=== PATIENT | male | born 1960 | race Caucasian/White ===

== ENCOUNTER 2019-09-25 12:20 | Inpatient (IN) | payer OTHER ==
[2019-09-25 12:31] VITALS: BMI 24.3
[2019-09-25] MEDS ORDERED: ASPIRIN 81 MG CHEWABLE TABLETS PO ONE (13:21)
--- NOTE | 2019-09-25 13:35 | PDOC ---
History of Present Illness - General Chief Complaint: Chest Pain Stated Complaint: CHEST PAIN Time Seen by Provider: 09/25/19 13:21 - History of Present Illness Initial Comments: 09/25/19 14:11 Pt is a 59 y/o M with a significant past medical history of HTN who presents to our emergency department due to chest pain. 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 As soon as pt lifted the equipment, he felt pain in his left arm which radiated to his chest. Pt states pain currently spans his entire chest; endorses he took Advil which partially relieved the pain. Did not hear any popping sound or snapping sound when the pain began. Denies headache, nasuea/vomiting, diaphoresis, shortness of breath, numbness, or tingling. PMH- HTN SocialHx- Denies Tobacco use. Social Drinker. Denies illicit drug use Surg Hx- Hernia Repair FH- Brother with [place] at 57 Allergies: Shellfish Past History - Past Medical History Allergies/Adverse Reactions: Allergies Allergy/AdvReac Type Severity Reaction Status Date / Time shellfish derived Allergy Verified 09/25/19 12:31 COPD: No HTN: Yes Other medical history: REDSTLESS LEG - Surgical History Abdominal Surgery: Yes (HERNIA) - Psycho Social/Smoking Cessation Hx Smoking History: Never smoked Review of Systems - Review of Systems Able to Perform ROS?: Yes Is the patient limited German proficient: No Constitutional: No: Chills, Diaphoresis, Fever HEENTM: No: Blurred Vision Respiratory: No: Cough, Orthopnea, Shortness of Breath, SOB with Exertion, SOB at Rest, Wheezing, Productive cough Cardiac (ROS): Yes: Chest Pain. No: Edema, Irregular Heart Rate, Lightheadedness, Palpitations, Syncope, Chest Tightness ABD/GI: No: Constipated, Diarrhea : No: Burning, Dysuria Musculoskeletal: Yes: Muscle Pain Integumentary: No: Bruising Neurological: No: Headache, Numbness, Paresthesia, Tingling, Weakness *Physical Exam - Vital Signs Last Vital Signs Temp Pulse Resp BP Pulse Ox 98.5 F 60 17 107/64 100 09/25/19 21:15 09/25/19 21:15 09/25/19 21:15 09/25/19 21:15 09/25/19 20:04 - Physical Exam General Appearance: Yes: Appropriately Dressed. No: Mild Distress, Moderate Distress, Severe Distress HEENT: positive: EOMI, Normal ENT Inspection. negative: Scleral Icterus (R), Scleral Icterus (L) Respiratory/Chest: positive: Lungs Clear, Normal Breath Sounds. negative: Respiratory Distress Cardiovascular: positive: Regular Rate, S1, S2 Gastrointestinal/Abdominal: negative: Distended, Guarding, Rebound, Tenderness Extremity: positive: Normal Inspection. negative: Pedal Edema Neurologic: positive: paper feeder II-XII NML intact, Fully Oriented, Motor Strength 5/5 Heart Score/ECG Review - History History: Slightly suspicious (Sinus barber 53 bpm, nl intervals, nl sinus rythm, , T wave inversion in III, ST depressions V5 and V6) - Electrocardiogram EKG: Non specific repolarization disturbance - Age Age: 45-65 - Risk Factors Risk Factors Heart Score: Yes Hx Hypertension, Yes Positive family hx of cardiac disease Based on the list above the patient has:: 1-2 risk factors - Troponin Troponin: </= normal limit - Score Heart Score - Total: 3 ED Treatment Course - LABORATORY CBC & Chemistry Diagram: 09/25/19 14:00 09/25/19 14:00 - ADDITIONAL ORDERS Additional order review: 09/25/19 14:00 RBC 4.81 MCV 88.4 MCHC 34.6 RDW 15.4 MPV 8.3 Neutrophils % 72.7 Lymphocytes % 19.4 Monocytes % 5.8 Eosinophils % 1.8 Basophils % 0.3 - Medications Given in the ED: ED Medications Discontinued Medications Generic Name Dose Route Start Last Admin Trade Name Cong PRN Reason Stop Dose Admin Aspirin 162 mg 09/25/19 13:21 09/25/19 15:00 Asa - PO 09/25/19 13:22 162 mg ONCE ONE Administration Atorvastatin Calcium 40 mg 09/25/19 15:42 09/25/19 16:24 Lipitor - PO 09/25/19 15:43 40 mg ONCE ONE Administration Enoxaparin Sodium 80 mg 09/25/19 16:15 09/25/19 16:47 Lovenox - SQ 80 mg Q12H NEGAR Administration Metoprolol Tartrate 5 mg 09/25/19 16:01 09/25/19 20:26 Lopressor Injection - IVPUSH 09/25/19 16:02 Not Given ONCE ONE Metoprolol Tartrate 25 mg 09/25/19 16:34 09/25/19 16:47 Lopressor - PO 09/25/19 16:35 25 mg ONCE ONE Administration Morphine Sulfate 2 mg 09/25/19 18:24 09/25/19 19:30 Morphine Injection - IVPUSH 09/25/19 18:25 2 mg ONCE ONE Administration Nitroglycerin 1 inch 09/25/19 15:42 09/25/19 16:24 Nitro-Bid 2% Paste - TD 09/25/19 15:43 1 inch ONCE ONE Administration Ticagrelor 180 mg 09/25/19 16:01 09/25/19 16:24 Brilinta PO 180 mg BID NEGAR Administration Medical Decision Making - Medical Decision Making 09/25/19 14:08 59 y/o M presents with chest pain x 4 days. Will order Cardiac Profile, CBC ASA once EKG 09/25/19 14:09 09/25/19 15:17 BNP 1332, Creatine kinase 599. Will contact Cardiology-Dr Harris to ascertain whether patient needs tele obs in light of heart score of 3. 09/25/19 15:32 trop 3.85. Spoke with Dr Harris. Will fax EKg to office and call back. 09/25/19 15:46 Dr Gallegos informed of patient's situation. Advised to administer lipitor 40 once and Nitro patch. Faxed EKG to Dr Harris's office. Awaiting call back. 09/25/19 16:11 Will order Brilinta 180 once, Lovenox weight based 1 mg/kg bid, Nitro paste. Will hold off on Beta twyla as pt's Hr now 50s, dipping to 45. Dr Araya will come evaluate patient tonight. 09/25/19 18:26 Repeat Trop 4.82. Cardiology aware. Pt also c/o pain, will administer Morphine and PRN nitro paste. Pt signed out to night team. Discharge - Discharge Information Problems reviewed: Yes Clinical Impression/Diagnosis: NSTEMI (non-ST elevated myocardial infarction) Condition: Stable Disposition: TRANSFER ACUTE CARE/OTHER HOSP - Follow up/Referral - Patient Discharge Instructions - Post Discharge Activity
--- NOTE | 2019-09-25 14:07 | PDOC ---
Attending Attestation - Resident Resident Name: AsuncionChuckie - ED Attending Attestation I have performed the following: I have examined & evaluated the patient, The case was reviewed & discussed with the resident, I agree w/resident's findings & plan, Exceptions are as noted - HPI HPI: 09/25/19 18:01 Mr Nelson is a carlos 59 yo M h/o HTN who presents to our emergency department due to chest pain. Patient reports that 4 days ago he began to have chest pain after lifting some of his heavy equipment. 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 He performed for 2 hours with no difficulty, no shortness of breath Over the ensuing 4 days, patient has noted intermittent chest pain which actually is worse with movement of his left arm and improved when he took Advil. He denies chest pain that worsens with exertion He describes the chest pain as an ache, located throughout the anterior chest, rates it at its worst 8/10 although currently 2/10. No radiation to the back or jaw. Patient did have pain radiating to his left shoulder Patient denies diaphoresis, dizziness Patient presents to the emergency department now because his symptoms have not improved over the past 4 days No prior episodes like this No prior stents PMH- HTN SocialHx- Denies Tobacco use. Social Drinker. Denies illicit drug use Surg Hx- Hernia Repair FH- Brother with [place] at 57 Allergies: Shellfish 09/27/19 19:51 - Physicial Exam PE: 09/25/19 16:10 GENERAL: The patient is in no acute distress. ENT: Ears normal, nares patent, oropharynx clear without exudates. Moist mucous membranes. NECK: Normal range of motion, supple LUNGS: Breath sounds equal, clear to auscultation bilaterally. No wheezes, and no crackles. HEART:Regular rate and rhythm, normal S1 and S2 without murmur, rub or gallop. ABDOMEN: Soft, nontender, normoactive bowel sounds. EXTREMITIES: Normal range of motion, no edema. NEUROLOGICAL: Cranial nerves II through XII grossly intact. Normal speech. No focal neurological deficits. SKIN: Warm, Dry, normal turgor, no rashes or lesions noted. - Critical Care Time Total Critical Care Time: 120 Critical Care Statement: The care of this patient involved high complexity decision making to prevent further life threatening deterioration of the patient 's condition and/or to evaluate & treat vital organ system(s) failure or risk of failure. - Medical Decision Making 09/25/19 18:04 59-year-old male presenting to the emergency department with a complaint of chest pain Differential includes cardiac ischemia, pe, asthma exacerbation, pneumonia, pneumothorax, pleural effusion, costochondritis, pericarditis, GERD. We will do: Labs, EKG, chest x-ray Admit 09/25/19 18:05 Laboratory Tests 09/25/19 09/25/19 14:00 14:00 WBC 7.8 Hgb 14.7 Hct 42.5 Plt Count 218 BUN 15.8 Creatinine 0.8 Creatine Kinase 599 H Creatine Kinase Index 6.6 H CK-MB (CK-2) 40.1 H Troponin I 3.45 H* B-Natriuretic Peptide 1332.2 H Chest x-ray: No mediastinal widening, no effusion, no cardiomegaly 09/25/19 18:05 Patient seen by cardiology in the ER Plan is for medical management and trending troponin Troponin repeated 09/25/19 18:06 Laboratory Tests 09/25/19 16:40 Troponin I 4.82 H* Will repeat EKG Call placed to Dr Araya as pt has mild pain He recommends Nitro drip and morphine for pain 09/25/19 18:26 Repeat EKG Normal sinus rhythm, bradycardic, rate of 53 bpm, axis is normal, intervals are normal T wave inversions noted lead III no Q wave 09/25/19 19:14 Pt assessed with and signed out to overnight team - Drs. Graham and Alexandra Pt reports chest pain 12/24 It is prudent to transfer him to a tertiary referral center because he is persistent chest pain and repeat trop was higher than initial troponin (rather than downward trending) Dr Morris has contacted [facility] and is arranging transfer Heart Score/ECG Review - History History: Slightly suspicious - Electrocardiogram EKG: Non specific repolarization disturbance - Age Age: 45-65 - Risk Factors Risk Factors Heart Score: Yes Hx Hypertension, Yes Positive family hx of cardiac disease Based on the list above the patient has:: 1-2 risk factors - Troponin Troponin: >/=3x normal limit - Score Heart Score - Total: 5
[2019-09-25 14:16] LABS: BASO % 0.3 % (0-2.0); EOS % 1.8 % (0-4.5); HEMATOCRIT 42.5 % (35.4-49); HEMOGLOBIN 14.7 GM/dL (11.7-16.9); LYMPH % 19.4 % (8-40); MCH 30.6 pg (25.7-33.7); MCHC 34.6 g/dl (32.0-35.9); MEAN CELL VOLUME 88.4 fl (80-96); MEAN PLT VOLUME 8.3 fl (7.5-11.1); MONO % 5.8 % (3.8-10.2); NEUT % 72.7 % (42.8-82.8); PLATELET COUNT 218 K/MM3 (134-434); RBC 4.81 M/mm3 (4.00-5.60); RDW 15.4 % (11.9-15.9); WHITE BLOOD COUNT 7.8 K/mm3 (4.0-10.0)
[2019-09-25 15:03] LABS: ALBUMIN 4.3 g/dl (3.4-5.0); BILIRUBIN,TOTAL 0.6 mg/dL (0.2-1); BLOOD UREA NITROGEN 15.8 mg/dL (7-18); CALCIUM 9.3 mg/dL (8.5-10.1); CREATININE 0.8 mg/dL (0.55-1.3); MAGNESIUM 2.5 mg/dL (1.8-2.4); N-TERMINAL BNP 1332.2 pg/ml (5-125); POTASSIUM 4.6 mmol/L (3.5-5.1); TOT PROT 7.2 g/dl (6.4-8.2)
[2019-09-25] MEDS ORDERED: ASPIRIN 81 MG CHEWABLE TABLETS ONE ×2 (15:24→20:23)
[2019-09-25] MEDS ORDERED: NITROGLYCERIN 2% OINTMENT - 1GM PACKET TD ONE ×2 (15:42→16:06)
[2019-09-25] MEDS ORDERED: ATORVASTATIN CA 40 MG TABLET (FP) PO ONE (15:42)
--- NOTE | 2019-09-25 15:48 | CON.CARD ---
Consult Consult Specialty:: Cardiology Referred by:: Tracie Blankenship MD Reason for Consultation:: Acute coronary syndrome - History of Present Illness Chief Complaint: Chest pain History of Present Illness: 59 yo WM h/o HTN, diastolic dysfunction, hyperlipidemia presented to emergency department due to sharp chest pain. 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 As soon as pt lifted the equipment, he felt pain in his left arm which radiated to his chest. Pt states pain spans his entire chest; endorses he took Advil which partially relieved the pain, subsequently chest discomfort waxes and wanes, but ultimately resolving. He denies associated dyspnea, near or true syncope, palpitations, orthopnea, PND, LE edema or change in exercise capacity. PMH- HTN SocialHx- Denies Tobacco use. Social Drinker. Denies illicit drug use Surg Hx- Hernia Repair FH- Brother with [place] at 57 Allergies: Shellfish - History Source History Provided By: Patient Limitations to Obtaining History: No Limitations - Smoking History Smoking history: Never smoked Home Medications - Allergies Allergies/Adverse Reactions: Allergies Allergy/AdvReac Type Severity Reaction Status Date / Time shellfish derived Allergy Verified 09/25/19 12:31 Review of Systems - Review of Systems Cardiovascular: reports: Chest Pain Vital Signs: Vital Signs Temperature 97.6 F 09/25/19 12:28 Pulse Rate 70 09/25/19 12:28 Respiratory Rate 18 09/25/19 12:28 Blood Pressure 140/83 09/25/19 12:28 O2 Sat by Pulse Oximetry (%) 100 09/25/19 12:28 Constitutional: Yes: No Distress, Calm Neck: Yes: Supple Respiratory: Yes: Regular, CTA Bilaterally Gastrointestinal: Yes: Normal Bowel Sounds, Soft Cardiovascular: Yes: Regular Rate and Rhythm JVD: No Carotid Bruit: No Heart Sounds: Yes: S1, S2 Edema: No - Other Data Labs, Other Data: CBC, BMP 09/25/19 14:00 09/25/19 14:00 Troponin, BNP 09/25/19 14:00 Troponin I 3.45 H* B-Natriuretic Peptide 1332.2 H Troponin, BNP 09/25/19 14:00 Troponin I 3.45 H* B-Natriuretic Peptide 1332.2 H NSR @ [address] depressions, inferior TWI Ejection Fraction %: LVEF < 40 % Imaging - Results Chest X-ray: Report Reviewed (NAD) Problem List - Problems (1) NSTEMI (non-ST elevated myocardial infarction) Code(s): I21.4 - NON-ST ELEVATION (NSTEMI) MYOCARDIAL INFARCTION (2) Coronary artery disease Code(s): I25.10 - ATHSCL HEART DISEASE OF [place] CORONARY ARTERY W/O ANG PCTRS Qualifiers: Coronary Disease-Associated Artery/Lesion type: [place] artery [place] vs. transplanted heart: [place] heart Associated angina: without angina Qualified Code(s): I25.10 - Atherosclerotic heart disease of [place] coronary artery without angina pectoris (3) Hypertension Code(s): I10 - ESSENTIAL (PRIMARY) HYPERTENSION Qualifiers: Hypertension type: essential hypertension Qualified Code(s): I10 - Essential (primary) hypertension (4) Hyperlipidemia Code(s): E78.5 - HYPERLIPIDEMIA, UNSPECIFIED Qualifiers: Hyperlipidemia type: pure hypercholesterolemia Qualified Code(s): E78.00 - Pure hypercholesterolemia, unspecified; E78.0 - Pure hypercholesterolemia Assessment/Plan April 08, 2016 Echo: Normal LV size and fxn, mild mitral, aortic and TV RVSP 31 mmhg April 14, 2016 ETT-Myoview: No ischemia, LVEF 76% 1. CAD s/p NSTEMI late presentation 2. Hypertensive cardiovascular disease 3. Hyperlipidemia 4. Diastolic dysfunction P:1. ASA 81 qd, Brilinta 90 bid, Lopressor 25 bid, Lovenox 80 bid, Lipitor 80 qd 2. Echocardiogram to assess ventricular and valve fxn 3. Trend trops to document peak, check TSH, lipid panel, Ha1c 4. LHC +/-PCI vs MIBI to evaluate severity of CAD 5. Thank you for consultative opportunity
[2019-09-25] MEDS ORDERED: METOPROLOL TARTRATE 5 MG/5 ML VIAL IVPUSH ONE (16:01)
[2019-09-25] MEDS ORDERED: TICAGRELOR 60 MG TABLET PO SCH ×2 (16:01→17:25)
[2019-09-25] MEDS ORDERED: TICAGRELOR 90 MG TABLET PO ONE (16:06)
[2019-09-25] MEDS ORDERED: ATORVASTATIN CA 40 MG TABLET (FP) ONE (16:06)
[2019-09-25] MEDS ORDERED: ENOXAPARIN NA (PORCINE) 80 MG/0.8 ML DISP.SYRIN SQ SCH (16:15)
[2019-09-25] MEDS ORDERED: METOPROLOL TARTRATE 25 MG TABLET (FP) PO SCH ×3 (16:28→22:00)
[2019-09-25] MEDS ORDERED: METOPROLOL TARTRATE 25 MG TABLET (FP) PO ONE (16:34)
[2019-09-25] MEDS ORDERED: ENOXAPARIN NA (PORCINE) 80 MG/0.8 ML DISP.SYRIN SQ ONE (16:38)
[2019-09-25] MEDS ORDERED: METOPROLOL TARTRATE 25 MG TABLET (FP) ONE (16:38)
[2019-09-25 17:04] LABS: INR 1.1 (0.83-1.09)
[2019-09-25] MEDS ORDERED: morphine CARPU-JECT 2 MG/1 ML DISP.SYRIN IVPUSH ONE (18:24)
[2019-09-25] MEDS ORDERED: MORPHINE SULFATE 2 MG/ML VIAL ONE (19:11)
--- NOTE | 2019-09-25 19:37 | PDOC ---
*Physical Exam - Vital Signs Last Vital Signs Temp Pulse Resp BP Pulse Ox 98.4 F 49 L 15 100/64 100 09/25/19 17:32 09/25/19 17:32 09/25/19 17:32 09/25/19 17:32 09/25/19 17:32 ED Treatment Course - LABORATORY CBC & Chemistry Diagram: 09/25/19 14:00 09/25/19 14:00 - ADDITIONAL ORDERS Additional order review: Laboratory Results 09/25/19 14:00 Sodium 140 Potassium 4.6 Chloride 108 H Carbon Dioxide 29 Anion Gap 3 L BUN 15.8 Creatinine 0.8 Est GFR (CKD-EPI)AfAm 111.74 Est GFR (CKD-EPI)NonAf 96.41 Random Glucose 96 Calcium 9.3 Magnesium 2.5 H Total Bilirubin 0.6 AST 59 H ALT 31 Alkaline Phosphatase 69 Creatine Kinase 599 H Creatine Kinase Index 6.6 H CK-MB (CK-2) 40.1 H Troponin I 3.45 H* B-Natriuretic Peptide 1332.2 H Total Protein 7.2 Albumin 4.3 09/25/19 14:00 RBC 4.81 MCV 88.4 MCHC 34.6 RDW 15.4 MPV 8.3 Neutrophils % 72.7 Lymphocytes % 19.4 Monocytes % 5.8 Eosinophils % 1.8 Basophils % 0.3 - Medications Given in the ED: ED Medications Discontinued Medications Generic Name Dose Route Start Last Admin Trade Name Freq PRN Reason Stop Dose Admin Aspirin 162 mg 09/25/19 13:21 09/25/19 15:00 Asa - PO 09/25/19 13:22 162 mg ONCE ONE Administration Atorvastatin Calcium 40 mg 09/25/19 15:42 09/25/19 16:24 Lipitor - PO 09/25/19 15:43 40 mg ONCE ONE Administration Metoprolol Tartrate 25 mg 09/25/19 16:34 09/25/19 16:47 Lopressor - PO 09/25/19 16:35 25 mg ONCE ONE Administration Nitroglycerin 1 inch 09/25/19 15:42 09/25/19 16:24 Nitro-Bid 2% Paste - TD 09/25/19 15:43 1 inch ONCE ONE Administration Ticagrelor 180 mg 09/25/19 16:01 09/25/19 16:24 Brilinta PO 180 mg BID NEGAR Administration Medical Decision Making - Medical Decision Making 09/25/19 19:31 59 y/o M with hx of HTN presenting to ED with 3 days of chest pain worsening x1 day. Found to have trop 3.45 and ekg changes with STD in I, V5, V6 and t wave inversions in II, III, AVF -cards consulted and patient started on lovenox, birlinta, b twyla, morphine, nitro paste, lipitor -patient continues to have chest pain despite therapy; repeat trop 4.82 and ekg with further changes in same leads including amplified t wave inversions -Dr Araya recommending medication management with nitro drip and morphine but patient expressing interest in transfer to [facility] called and initiated transfer for escalation of care given worsening pain, increasing trop, and ekg changes for catheterization Transfer accepted; awaiting EMS Discharge - Discharge Information Problems reviewed: Yes Clinical Impression/Diagnosis: NSTEMI (non-ST elevated myocardial infarction) Condition: Stable Disposition: TRANSFER ACUTE CARE/OTHER HOSP - Follow up/Referral - Patient Discharge Instructions - Post Discharge Activity - Transfer to Acute Care Facility Receiving Facility Name: [facility]
--- NOTE | 2019-09-25 19:45 | PDOC ---
*Physical Exam - Vital Signs Last Vital Signs Temp Pulse Resp BP Pulse Ox 98.4 F 49 L 15 100/64 100 09/25/19 17:32 09/25/19 17:32 09/25/19 17:32 09/25/19 17:32 09/25/19 17:32 ED Treatment Course - LABORATORY CBC & Chemistry Diagram: 09/25/19 14:00 09/25/19 14:00 - ADDITIONAL ORDERS Additional order review: Laboratory Results 09/25/19 14:00 Sodium 140 Potassium 4.6 Chloride 108 H Carbon Dioxide 29 Anion Gap 3 L BUN 15.8 Creatinine 0.8 Est GFR (CKD-EPI)AfAm 111.74 Est GFR (CKD-EPI)NonAf 96.41 Random Glucose 96 Calcium 9.3 Magnesium 2.5 H Total Bilirubin 0.6 AST 59 H ALT 31 Alkaline Phosphatase 69 Creatine Kinase 599 H Creatine Kinase Index 6.6 H CK-MB (CK-2) 40.1 H Troponin I 3.45 H* B-Natriuretic Peptide 1332.2 H Total Protein 7.2 Albumin 4.3 09/25/19 14:00 RBC 4.81 MCV 88.4 MCHC 34.6 RDW 15.4 MPV 8.3 Neutrophils % 72.7 Lymphocytes % 19.4 Monocytes % 5.8 Eosinophils % 1.8 Basophils % 0.3 - Medications Given in the ED: ED Medications Discontinued Medications Generic Name Dose Route Start Last Admin Trade Name Freq PRN Reason Stop Dose Admin Aspirin 162 mg 09/25/19 13:21 09/25/19 15:00 Asa - PO 09/25/19 13:22 162 mg ONCE ONE Administration Atorvastatin Calcium 40 mg 09/25/19 15:42 09/25/19 16:24 Lipitor - PO 09/25/19 15:43 40 mg ONCE ONE Administration Metoprolol Tartrate 25 mg 09/25/19 16:34 09/25/19 16:47 Lopressor - PO 09/25/19 16:35 25 mg ONCE ONE Administration Nitroglycerin 1 inch 09/25/19 15:42 09/25/19 16:24 Nitro-Bid 2% Paste - TD 09/25/19 15:43 1 inch ONCE ONE Administration Ticagrelor 180 mg 09/25/19 16:01 09/25/19 16:24 Brilinta PO 180 mg BID NEGAR Administration Medical Decision Making - Medical Decision Making 09/25/19 19:[address] Garrido - Craniologist [facility] accepted to ED
[2019-09-25 20:04] VITALS: BP 107/64; PULSE 60
--- NOTE | 2019-09-25 20:18 | HP ---
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 Pain across chest come back, on and off, over the weekend; pt tried Advil with partial relief; pt came today to ER. In ER he was found to have elevated Trop I. - Past Medical History Cardiovascular: Yes: HTN, Hyperlipdemia Musculoskeletal: Yes: Chronic low back pain (on and off) - Smoking History Smoking history: Never smoked Home Medications - Allergies Allergies/Adverse Reactions: Allergies Allergy/AdvReac Type Severity Reaction Status Date / Time shellfish derived Allergy Verified 09/25/19 12:31 Family Medical History Family Hx Cardiac Disorders: Brother (Hx/o CAD, s/p PCI with stent, secondary to [place]) Review of Systems - Review of Systems Constitutional: denies: Chills, Fever Eyes: denies: Blurred Vision, Double Vision HENT: denies: Nasal Congestion, Throat Pain Neck: denies: Pain on Movement, Stiffness Cardiovascular: reports: Chest Pain (earlier, before received NTG patch and morphine). denies: Palpitations, Shortness of Breath Respiratory: denies: Cough, SOB Gastrointestinal: denies: Abdominal Pain, Nausea, Vomiting Genitourinary: denies: Burning, Discharge Musculoskeletal: denies: Back Pain, Muscle Pain Integumentary: denies: Bruising, Rash Neurological: denies: Incoordination, Numbness, Weakness Endocrine: denies: Excessive Sweating, Intolerance to Cold Hematology/Lymphatic: denies: Easily Bruised, Excessive Bleeding Psychiatric: denies: Anxiety, Depression Physical Examination Vital Signs: Vital Signs Temperature 98.4 F 09/25/19 17:32 Pulse Rate 60 09/25/19 20:04 Respiratory Rate 17 09/25/19 20:04 Blood Pressure 107/64 09/25/19 20:04 O2 Sat by Pulse Oximetry (%) 100 09/25/19 20:04 Constitutional: No: No Distress, Calm Eyes: No: Conjunctiva Clear, PERRL HENT: No: Epistaxis, Rhinnorhea Neck: Yes: Trachea Midline. No: Lymphadenopathy Cardiovascular: Yes: Regular Rate and Rhythm. No: S1, S2 Respiratory: Yes: Regular, CTA Bilaterally. No: Rales Gastrointestinal: Yes: Normal Bowel Sounds, Soft. No: Hepatomegaly ...Rectal Exam: Yes: Deferred Renal/: No: CVA Tenderness - Left, CVA Tenderness - Right Musculoskeletal: No: Joint Stiffness, Joint Swelling Extremities: No: Cold, Cool Edema: No Integumentary: No: Bruising, Rash Neurological: Yes: Alert, Oriented, Other (motor and sensory is symmetric in UE / LE/ face.) Psychiatric: Yes: Alert, Oriented Labs: CBC, BMP 09/25/19 14:00 09/25/19 14:00 Problem List - Problems (1) Hyperlipidemia Code(s): E78.5 - HYPERLIPIDEMIA, UNSPECIFIED Qualifiers: Hyperlipidemia type: pure hypercholesterolemia Qualified Code(s): E78.00 - Pure hypercholesterolemia, unspecified; E78.0 - Pure hypercholesterolemia (2) Hypertension Code(s): I10 - ESSENTIAL (PRIMARY) HYPERTENSION Qualifiers: Hypertension type: essential hypertension Qualified Code(s): I10 - Essential (primary) hypertension (3) NSTEMI (non-ST elevated myocardial infarction) Code(s): I21.4 - NON-ST ELEVATION (NSTEMI) MYOCARDIAL INFARCTION Assessment/Plan Cardio consult ASA, AC, BB, statin, NTG, morphine (PRN), O2 supplementation PRN. Serial CE ECHO AM Labs
[2019-09-25 21:20] VITALS: TEMP 98.5
[2019-09-26] MEDS ORDERED: TICAGRELOR 90 MG TABLET PO SCH (10:00)
[2019-09-26] MEDS ORDERED: ENOXAPARIN NA (PORCINE) 80 MG/0.8 ML DISP.SYRIN SQ SCH (10:00)
--- NOTE | 2019-09-26 11:24 | EKG ---
Test Reason : Blood Pressure : / mmHG Vent. Rate : 053 BPM Atrial Rate : 053 BPM P-R Int : 176 ms QRS Dur : 100 ms QT Int : 432 ms P-R-T Axes : 019 032 002 degrees QTc Int : 405 ms SINUS BRADYCARDIA WITH PREMATURE ATRIAL COMPLEXES POSSIBLE INFERIOR INFARCT (CITED ON OR BEFORE 25-SEP-2019) ABNORMAL ECG WHEN COMPARED WITH ECG OF 25-SEP-2019 12:22, PREMATURE ATRIAL COMPLEXES ARE NOW PRESENT QUESTIONABLE CHANGE IN INITIAL FORCES OF INFERIOR LEADS ST NO LONGER DEPRESSED IN LATERAL LEADS Confirmed by CARROLL HUIZAR, LUCIA ([id number]) on 09/26/2019 11:24:27 AM Referred By: Confirmed By:LUCIA HODGES MD
--- NOTE | 2019-09-26 12:15 | EKG ---
Test Reason : Blood Pressure : / mmHG Vent. Rate : 069 BPM Atrial Rate : 069 BPM P-R Int : 182 ms QRS Dur : 110 ms QT Int : 382 ms P-R-T Axes : 066 065 -12 degrees QTc Int : 409 ms NORMAL SINUS RHYTHM inferio lateral st depression r/o ischemia ABNORMAL ECG NO PREVIOUS ECGS AVAILABLE Confirmed by LUCIA HODGES MD ([id number]) on 09/26/2019 12:15:27 PM Referred By: Confirmed By:LUCIA HODGES MD
--- NOTE | 2019-09-27 14:46 | EKG ---
Test Reason : Blood Pressure : / mmHG Vent. Rate : 062 BPM Atrial Rate : 062 BPM P-R Int : 182 ms QRS Dur : 104 ms QT Int : 376 ms P-R-T Axes : 061 041 -27 degrees QTc Int : 381 ms NORMAL SINUS RHYTHM POSSIBLE LEFT ATRIAL ENLARGEMENT INCOMPLETE RIGHT BUNDLE BRANCH BLOCK T WAVE ABNORMALITY, CONSIDER INFERIOR ISCHEMIA ABNORMAL ECG WHEN COMPARED WITH ECG OF 25-SEP-2019 18:13, PREMATURE ATRIAL COMPLEXES ARE NO LONGER PRESENT T WAVE INVERSION NOW EVIDENT IN ANTERIOR LEADS Confirmed by ARAMIS DELCID MD ([id number]) on 09/27/2019 2:45:40 PM Referred By: Confirmed By:ARAMIS DELCID MD
== END 2019-09-25 20:15 | disposition short-term general hospital (02) | DRG 282 ==
LOC: JER 12:20 → JERBED 15:35
PROVIDERS: ADMIT Specialist; ATTEND Specialist
DX: I21.4 Non-ST elevation (NSTEMI) myocardial infarction (principal); E78.5 Hyperlipidemia, unspecified; R07.9 Chest pain, unspecified; I25.10 Atherosclerotic heart disease of native coronary artery without angina pectoris; I11.9 Hypertensive heart disease without heart failure
CPT/HCPCS: 36415; 71045-TC-FY; 80053; 82550; 82553; 83735; 83880; 84484; 85025; 85610; 85730; 93005; 93010; 99285-25